=== PATIENT | female | born 1955 | race Two or more races ===

== ENCOUNTER 2022-07-18 10:15 | Inpatient (IN) | payer OTHER ==
[~2022-07-18] VITALS: Ht 170.2 cm; Wt 88.5 kg
[2022-07-18] MEDS ORDERED: ATACAND32 MG PO (14:36)
[2022-07-18] MEDS ORDERED: VYTORIN 10-201 EACH PO (14:37)
[2022-07-18] MEDS ORDERED: SYNTHROID50 MCG PO (14:37)
[2022-07-23] MEDS ORDERED: EZETIMIBE10 MG (08:29)
[2022-07-23] MEDS ORDERED: SIMVASTATIN20 MG (08:29)
[2022-07-25] MEDS ORDERED: NORFLEX100MG PO (12:59)
[2022-07-25] MEDS ORDERED: GABAPENTIN100 MG PO (12:59)
[2022-07-25] MEDS ORDERED: XARELTO10 MG PO (13:01)
[2022-07-25] MEDS ORDERED: ULTRAM50 MG PO (13:02)
== END 2022-07-25 19:02 | DRG 470 ==
LOC: O/R 07-23 05:15 → SURH 07-23 10:15 → SURG 07-23 15:34
PROVIDERS: ADMIT Orthopaedic Surgery; ATTEND Orthopaedic Surgery
PROC: 0SRD0J9 Replacement of Left Knee Joint with Synthetic Substitute, Cemented, Open Approach (ICD-10-PCS; principal; 2022-07-23 10:45)
DX: M17.12 Unilateral primary osteoarthritis, left knee (principal); D62 Acute posthemorrhagic anemia; M85.662 Other cyst of bone, left lower leg; R26.89 Other abnormalities of gait and mobility